=== PATIENT | male | born 1970 | race Two or more races ===

== ENCOUNTER 2017-07-23 09:23 | Outpatient (CLI) | payer OTHER | END 2017-07-23 09:29 | disposition home or self-care (01) | LOC: SONOGRAMA 09:23 | DX: E04.1 Nontoxic single thyroid nodule (principal) ==

== ENCOUNTER 2018-01-21 08:22 | Outpatient (CLI) | payer OTHER | END 2018-01-21 12:59 | disposition home or self-care (01) | LOC: SONOGRAMA 08:22 | DX: E04.1 Nontoxic single thyroid nodule (principal) ==